=== PATIENT | female | born 1995 ===

== ENCOUNTER 2017-07-18 14:42 | Inpatient (IN) ==
[2017-07-18] MEDS: LACTATED RINGERS 1,000 ML IV SCH ×3 (15:15→20:53)
[2017-07-18] MEDS ORDERED: MAGNESIUM SULF RIDER 4 GM in PREMIX 1 EACH IV ONE (15:17)
[2017-07-18] MEDS ORDERED: ONDANSETRON 4 MG/2 ML VIAL IV PRN ×3 (15:19→20:10)
[2017-07-18] MEDS ORDERED: OXYTOCIN 10 UNIT/ML VIAL IM ONE (15:24)
[2017-07-18] MEDS ORDERED: ceFAZolin 2,000 MG in PREMIX 1 EACH IV ONE (15:24)
[2017-07-18] MEDS ORDERED: FAMOTIDINE 20 MG/2 ML VIAL IV ONE (15:26)
[2017-07-18] MEDS ORDERED: CITRIC ACID/SODIUM CITRATE 30 ML UDCUP PO ONE (15:26)
[2017-07-18] MEDS ORDERED: MAGNESIUM SULF DRIP 40 GM/1,000 ML ML IV SCH (15:30)
[2017-07-18 15:34] LABS: Basophils % 0.2 % (0.0-0.8); Eosinophils # 0.2 10*3/uL (0.0-0.87); Eosinophils % 1.7 % (0.00-10.9); Hematocrit 29.1 VOL% (35.7-47.0); Hemoglobin 8.6 GM/DL (12.0-16.0); Immature Granulocytes % 1.1 %; Immature Granulocytes Absolute 0.11 #; Lymphocytes % 19.1 % (21.3-54.2); Mean Corpuscular HGB Conc 29.6 GM/DL (32-36); Mean Corpuscular Hemoglobin 22 PG (27-34); Mean Corpuscular Volume 72.9 FL (87-102); Mean Platelet Volume 9.8 FL (9.6-12.0); Monocytes # 0.6 10*3/uL (0.11-0.8); Monocytes % 6.2 % (1.7-12.7); NRBC # 0.02 10*3/uL; Neutrophils # 7.4 10*3/uL (1.4-7.4); Neutrophils % 71.7 % (38.7-73.9); Platelet Count 397 T/CUMM (130-400); Red Blood Count 3.99 MC/CUMM (3.8-5.5); Red Cell Distribution Width 16.2 % (9.3-17.3); White Blood Count 10.3 T/CUMM (4-12)
[2017-07-18 15:57] LABS: INR 0.9; PT Patient Result 9.4 SECS; Partial Thromboplastin Time 28.4 SECS (0-40)
[2017-07-18 16:04] LABS: Alanine Aminotransferase 30 U/L (13-56); Albumin 2.1 G/DL (3.4-5.0); Alkaline Phosphatase 226 U/L (45-117); Aspartate Amino Transferase 38 U/L (0-37); Bilirubin,Total < 0.39 MG/DL (0.2-1.0); Blood Urea Nitrogen 8 MG/DL (7-18); Calcium 8.4 MG/DL (8.5-10.1); Glucose 92 MG/DL (74-106); Osmolality,Calculated 270.8 MOS/KG (273-304); Potassium 4.2 MMOL/L (3.5-5.1); Sodium 137 MMOL/L (136-145); Total Protein 6.2 G/DL (6.4-8.3); Uric Acid 3.8 MG/DL (2.6-6.0)
[2017-07-18 17:22] LABS: Apearance,Urine CLEAR (Clear); Bilirubin,Urine Negative (Negative); Blood, Urine Negative (Negative); Glucose,Urine (UA) Negative (Negative); Ketones,Urine Negative (Negative); Mucus,Urine Occasional /LPF (Occasional); Nitrite,Urine Negative (Negative); Protein,Urine 100 MG/DL; RBC,Urine 1 /HPF (0-4); Urine Color Yellow (Yellow); Urine Specific Gravity 1.011 (1.001-1.035); Urine Urobilinogen < 2.0 EU/DL (0.2-1.0); WBC,Urine 1 /HPF (0-6)
[2017-07-18] MEDS ORDERED: SUGAMMADEX 200 MG/2 ML VIAL IV ONE (18:31)
[2017-07-18 18:59] LABS: Cord Arterial Blood HCO3 28.5 MMOL/L
[2017-07-18 19:02] LABS: Cord Venous Blood HCO3 27.3 MMOL/L; Cord Venous Blood PCO2 55.8 MMHG; Cord Venous Blood PO2 33.7 MMHG
[2017-07-18] MEDS ORDERED: PROPOFOL 1,000 MG/100 ML BOTTLE IV ONE ×2 (19:33→19:35)
[2017-07-18] MEDS ORDERED: ALBUTEROL 2.5 MG/3 ML NEB RESP TX ONE (19:37)
[2017-07-18] MEDS ORDERED: MAGNESIUM HYDROXIDE SUSP 30 ML UDCUP PO PRN ×2 (19:39→20:10)
[2017-07-18] MEDS ORDERED: DEXTROSE 50% 25 GM/50 ML VIAL IV PRN (19:39)
[2017-07-18] MEDS ORDERED: NALOXONE 0.4 MG/ML VIAL IV PRN (19:39)
[2017-07-18] MEDS ORDERED: GLUCAGON 1 MG VIAL IM PRN (19:39)
[2017-07-18] MEDS ORDERED: ACETAMINOPHEN 325 MG TABLET PO PRN ×2 (19:39→20:10)
[2017-07-18] MEDS ORDERED: IBUPROFEN 800 MG TABLET PO PRN ×2 (19:39→20:10)
[2017-07-18] MEDS ORDERED: PHENYLEPHRINE 1 MG/10 ML SYRINGE IV ONE (19:52)
[2017-07-18] MEDS ORDERED: MIDAZOLAM 2 MG/2 ML VIAL ONE (19:52)
[2017-07-18] MEDS ORDERED: PROPOFOL 200 MG/20 ML VIAL IV ONE (19:52)
[2017-07-18] MEDS ORDERED: SUCCINYLCHOLINE 200 MG/10 ML VIAL ONE (19:53)
[2017-07-18] MEDS ORDERED: MEPERIDINE PCA 300 MG/30 ML SYRINGE IV SCH (20:00)
[2017-07-18] MEDS: PROPOFOL 1,000 MG/100 ML BOTTLE IV SCH ×2 (20:04→23:17)
[2017-07-18] MEDS ORDERED: SIMETHICONE CHEW 80 MG TABLET PO PRN (20:10)
[2017-07-18] MEDS ORDERED: LACTATED RINGERS 1,000 ML IV SCH (20:10)
[2017-07-18] MEDS ORDERED: OXYTOCIN/LR 20 UNIT/1,000 ML BAG IV ONE (20:10)
[2017-07-18] MEDS ORDERED: RHO(D) IMMUNE GLOBULIN 300 MCG SYRINGE IM ONE (20:10)
[2017-07-18 20:15] LABS: ABG HCO3 24.8 MMOL/L (20-26); ABG Oxygen Saturation 98.9 % (95-100); ABG PCO2 60.3 MM HG (35-48); ABG PH 7.232 (7.35-7.45); ABG PO2 238.5 MM HG (80-95); ABG TCO2 26.7 MMOL/L (23-27)
[2017-07-18] MEDS ORDERED: DOCUSATE SODIUM 100 MG CAPSULE PO SCH (21:00)
[2017-07-18] MEDS: OXYTOCIN/LR 30 UNIT/1,000 ML BAG IV ONE ×2 (21:02→22:18)
[2017-07-18] MEDS: OXYTOCIN/LR 20 UNIT/1,000 ML BAG IV ONE (21:03)
[2017-07-18] MEDS: DOCUSATE SODIUM 100 MG CAPSULE PO SCH (21:04)
[2017-07-18] MEDS: MEPERIDINE 50 MG/1 ML VIAL IV PRN (21:09)
[2017-07-19] MEDS: MEPERIDINE 50 MG/1 ML VIAL IV PRN ×4 (01:14→16:35)
[2017-07-19] MEDS: PROPOFOL 1,000 MG/100 ML BOTTLE IV SCH ×8 (02:36→22:35)
[2017-07-19] MEDS: ceFAZolin 1,000 MG in SYRINGE 1 EACH IV SCH ×2 (03:03→11:00)
[2017-07-19] MEDS: LACTATED RINGERS 1,000 ML IV SCH ×3 (03:05→20:15)
[2017-07-19 04:16] LABS: ABG Base Excess -1.6 MMOL/L (-2.5-2.5); ABG HCO3 23.1 MMOL/L (20-26); ABG Oxygen Saturation 99.9 % (95-100); ABG PCO2 42.2 MM HG (35-48); ABG PH 7.358 (7.35-7.45); ABG TCO2 22.5 MMOL/L (23-27)
[2017-07-19] MEDS: OXYTOCIN/LR 20 UNIT/1,000 ML BAG IV ONE (05:30)
[2017-07-19] MEDS ORDERED: MULTIVITAMIN (PRENATAL) TABLET PO SCH (09:00)
[2017-07-19] MEDS: MULTIVITAMIN (PRENATAL) TABLET PO SCH (09:00)
[2017-07-19] MEDS: DOCUSATE SODIUM 100 MG CAPSULE PO SCH ×2 (09:00→20:16)
[2017-07-19] MEDS: ENOXAPARIN 30 MG/0.3 ML SYRINGE SUBCUT SCH (09:05)
[2017-07-19 09:41] LABS: Basophils % 0.1 % (0.0-0.8); Eosinophils # 0.1 10*3/uL (0.0-0.87); Eosinophils % 0.4 % (0.00-10.9); Hematocrit 22.6 VOL% (35.7-47.0); Immature Granulocytes % 0.7 %; Lymphocytes # 1.6 10*3/uL (1.4-4.0); Lymphocytes % 11.5 % (21.3-54.2); Mean Corpuscular HGB Conc 30.5 GM/DL (32-36); Mean Corpuscular Hemoglobin 22 PG (27-34); Mean Corpuscular Volume 71.3 FL (87-102); Mean Platelet Volume 10.3 FL (9.6-12.0); Monocytes % 6.9 % (1.7-12.7); NRBC # 0.02 10*3/uL; Neutrophils # 11.1 10*3/uL (1.4-7.4); Neutrophils % 80.4 % (38.7-73.9); Platelet Count 340 T/CUMM (130-400); Red Cell Distribution Width 16.3 % (9.3-17.3)
[2017-07-19 09:42] LABS: Hemoglobin 6.9 GM/DL (12.0-16.0); Red Blood Count 3.17 MC/CUMM (3.8-5.5); White Blood Count 13.8 T/CUMM (4-12)
[2017-07-19 09:55] LABS: Calcium 7.3 MG/DL (8.5-10.1); Osmolality,Calculated 274.7 MOS/KG (273-304); Potassium 4.7 MMOL/L (3.5-5.1)
[2017-07-19] MEDS: FUROSEMIDE 40 MG/4 ML VIAL IV SCH ×3 (09:58→23:10)
[2017-07-20] MEDS: PROPOFOL 1,000 MG/100 ML BOTTLE IV SCH ×4 (00:54→23:39)
[2017-07-20] MEDS: LACTATED RINGERS 1,000 ML IV SCH (03:00)
[2017-07-20 03:21] LABS: Allen Test Positive; Pt O2 Delivery Device Ventilator
[2017-07-20 03:22] LABS: ABG Base Excess 2.3 MMOL/L (-2.5-2.5); ABG HCO3 27.3 MMOL/L (20-26); ABG Oxygen Saturation 97.8 % (95-100); ABG PCO2 44.4 MM HG (35-48); ABG PH 7.406 (7.35-7.45); ABG PO2 119.1 MM HG (80-95); ABG TCO2 28.6 MMOL/L (23-27)
[2017-07-20] MEDS: FUROSEMIDE 40 MG/4 ML VIAL IV SCH (03:45)
[2017-07-20 05:59] LABS: Basophils % 0.1 % (0.0-0.8); Eosinophils # 0.1 10*3/uL (0.0-0.87); Eosinophils % 1.1 % (0.00-10.9); Hematocrit 21.3 VOL% (35.7-47.0); Hemoglobin 6.5 GM/DL (12.0-16.0); Immature Granulocytes % 0.7 %; Immature Granulocytes Absolute 0.09 #; Lymphocytes # 1.5 10*3/uL (1.4-4.0); Lymphocytes % 11.2 % (21.3-54.2); Mean Corpuscular HGB Conc 30.5 GM/DL (32-36); Mean Corpuscular Hemoglobin 22 PG (27-34); Mean Corpuscular Volume 72.2 FL (87-102); Mean Platelet Volume 10.3 FL (9.6-12.0); Monocytes # 0.9 10*3/uL (0.11-0.8); Monocytes % 6.9 % (1.7-12.7); Neutrophils # 10.3 10*3/uL (1.4-7.4); Platelet Count 352 T/CUMM (130-400); Red Blood Count 2.95 MC/CUMM (3.8-5.5); Red Cell Distribution Width 16.8 % (9.3-17.3); White Blood Count 12.9 T/CUMM (4-12)
[2017-07-20 06:28] LABS: Calcium 7.2 MG/DL (8.5-10.1); Osmolality,Calculated 276.5 MOS/KG (273-304); Potassium 4.1 MMOL/L (3.5-5.1)
[2017-07-20] MEDS: MEPERIDINE 50 MG/1 ML VIAL IV PRN ×3 (07:05→19:47)
[2017-07-20] MEDS ORDERED: LACTATED RINGERS 1,000 ML IV SCH (07:25)
[2017-07-20] MEDS ORDERED: SODIUM CHLORIDE 0.9% 1,000 ML IV PRN (08:07)
[2017-07-20] MEDS: ENOXAPARIN 30 MG/0.3 ML SYRINGE SUBCUT SCH (08:30)
[2017-07-20] MEDS: MULTIVITAMIN (PRENATAL) TABLET PO SCH (09:00)
[2017-07-20] MEDS: DOCUSATE SODIUM 100 MG CAPSULE PO SCH ×2 (09:00→20:40)
[2017-07-20] MEDS ORDERED: FUROSEMIDE 40 MG/4 ML VIAL IV ONE (09:44)
[2017-07-20] MEDS ORDERED: RHO(D) IMMUNE GLOBULIN 300 MCG SYRINGE IM ONE (12:00)
[2017-07-20] MEDS: hydrALAZINE 20 MG/1 ML VIAL IV PRN ×2 (13:20→19:16)
[2017-07-20] MEDS: SIMETHICONE CHEW 80 MG TABLET PO PRN ×2 (15:35→22:19)
[2017-07-20] MEDS ORDERED: FUROSEMIDE 40 MG/4 ML VIAL ONE (18:12)
[2017-07-20] MEDS ORDERED: hydrALAZINE 20 MG/1 ML VIAL IV ONE (19:10)
[2017-07-21] MEDS: MEPERIDINE 50 MG/1 ML VIAL IV PRN ×2 (01:15→04:48)
[2017-07-21 06:03] LABS: Basophils % 0.1 % (0.0-0.8); Eosinophils # 0.2 10*3/uL (0.0-0.87); Eosinophils % 1.4 % (0.00-10.9); Hematocrit 28.7 VOL% (35.7-47.0); Immature Granulocytes Absolute 0.16 #; Lymphocytes # 1.7 10*3/uL (1.4-4.0); Mean Corpuscular HGB Conc 31.4 GM/DL (32-36); Mean Corpuscular Hemoglobin 23 PG (27-34); Mean Platelet Volume 10.3 FL (9.6-12.0); Monocytes % 6.3 % (1.7-12.7); NRBC # 0.03 10*3/uL; Neutrophils # 12.4 10*3/uL (1.4-7.4); Neutrophils % 80.2 % (38.7-73.9); Platelet Count 405 T/CUMM (130-400); Red Blood Count 3.88 MC/CUMM (3.8-5.5); Red Cell Distribution Width 18.4 % (9.3-17.3); White Blood Count 15.5 T/CUMM (4-12)
[2017-07-21 06:31] LABS: Calcium 8.1 MG/DL (8.5-10.1); Osmolality,Calculated 277.4 MOS/KG (273-304); Potassium 3.8 MMOL/L (3.5-5.1)
[2017-07-21] MEDS: ENOXAPARIN 30 MG/0.3 ML SYRINGE SUBCUT SCH (08:28)
[2017-07-21] MEDS: DOCUSATE SODIUM 100 MG CAPSULE PO SCH ×2 (08:28→22:19)
[2017-07-21] MEDS: MULTIVITAMIN (PRENATAL) TABLET PO SCH (08:28)
[2017-07-21] MEDS ORDERED: ACETAMINOPHEN 325 MG TABLET PO PRN (10:29)
[2017-07-21] MEDS ORDERED: ONDANSETRON 4 MG/2 ML VIAL IV PRN (10:29)
[2017-07-21] MEDS ORDERED: IBUPROFEN 800 MG TABLET PO PRN (10:29)
[2017-07-21] MEDS: MAGNESIUM HYDROXIDE SUSP 30 ML UDCUP PO PRN ×2 (10:51→22:18)
[2017-07-21] MEDS: SIMETHICONE CHEW 80 MG TABLET PO PRN ×2 (10:51→22:19)
[2017-07-22] MEDS: MAGNESIUM HYDROXIDE SUSP 30 ML UDCUP PO PRN (09:02)
[2017-07-22] MEDS: SIMETHICONE CHEW 80 MG TABLET PO PRN (09:03)
[2017-07-22] MEDS: DOCUSATE SODIUM 100 MG CAPSULE PO SCH ×2 (09:03→21:29)
[2017-07-22] MEDS: MULTIVITAMIN (PRENATAL) TABLET PO SCH (09:03)
[2017-07-22] MEDS: ENOXAPARIN 30 MG/0.3 ML SYRINGE SUBCUT SCH (09:06)
[2017-07-22] MEDS: FLUTICASONE 50 MCG NASAL SPRAY 16 GM BOTTLE BOTH NARES SCH ×2 (14:54→22:44)
[2017-07-22] MEDS: FUROSEMIDE 40 MG/4 ML VIAL IV SCH (21:30)
[2017-07-23] MEDS: FUROSEMIDE 40 MG/4 ML VIAL IV SCH ×2 (04:20→10:30)
[2017-07-23] MEDS: SIMETHICONE CHEW 80 MG TABLET PO PRN (08:58)
[2017-07-23] MEDS: DOCUSATE SODIUM 100 MG CAPSULE PO SCH (08:58)
[2017-07-23] MEDS: ENOXAPARIN 30 MG/0.3 ML SYRINGE SUBCUT SCH (08:58)
[2017-07-23] MEDS: MULTIVITAMIN (PRENATAL) TABLET PO SCH (08:58)
[2017-07-23] MEDS: MAGNESIUM HYDROXIDE SUSP 30 ML UDCUP PO PRN (08:58)
[2017-07-23] MEDS: FLUTICASONE 50 MCG NASAL SPRAY 16 GM BOTTLE BOTH NARES SCH (09:00)
[2017-07-23 12:24] VITALS: BP 143/82
== END 2017-07-23 15:10 | disposition home or self-care (01) | DRG 540 ==
LOC: N.LDOUT 14:42 → N.LD 14:50 → N.ICU 19:33 → N.OB 07-21 10:36
PROVIDERS: ADMIT Obstetrics & Gynecology; ATTEND Obstetrics & Gynecology
PROC: LDCSECT (ICD-10-PCS; 2017-07-18 18:00)